=== PATIENT | male | born 1970 | race Hispanic/Latino ===

== ENCOUNTER → 2018-08-08 | Outpatient (CLI) | payer OTHER ==
[~2018-08-08] MED LIST: DOXY-252 PO; GABA600T PO; LINA5TAB PO; METF-446 PO; PIOG30TA10 PO
== END | disposition home or self-care (01) ==
LOC: RAH 14:35
PROVIDERS: ATTEND Orthopaedic Surgery
DX: M19.012 Primary osteoarthritis, left shoulder (principal); M65.812 Other synovitis and tenosynovitis, left shoulder; M75.101 Unspecified rotator cuff tear or rupture of right shoulder, not specified as traumatic
CPT/HCPCS: 73221

== ENCOUNTER 2019-08-16 14:10 | Emergency (ER) | payer OTHER | END 2019-08-16 14:57 | disposition home or self-care (01) | LOC: EDH 14:10 | DX: M79.671 Pain in right foot (principal); E11.9 Type 2 diabetes mellitus without complications; I10 Essential (primary) hypertension; Z72.0 Tobacco use | CPT/HCPCS: 99281 ==